=== PATIENT | female | born 1960 | race Caucasian/White ===

== ENCOUNTER 2018-01-03 16:41 | Emergency (ER) | payer OTHER ==
[~2018-01-03] VITALS: Ht 160 cm; Wt 109.0 kg
[~2018-01-03 16:41] MED LIST: ACET-75 PO; ASPI-1265 PO; FLUO20CA39 PO; GLUC-99 PO; MULT1TAB74 PO; OMEG300C3 PO; VITC500T PO
[2018-01-03 16:43] VITALS: BP 134/66
[2018-01-03] MEDS ORDERED: IBUP-1984 PO (19:50)
== END 2018-01-03 19:57 | disposition home or self-care (01) ==
LOC: ER 16:42
DX: M54.9 Dorsalgia, unspecified (principal); E11.9 Type 2 diabetes mellitus without complications; I25.2 Old myocardial infarction; G89.29 Other chronic pain; Z90.710 Acquired absence of both cervix and uterus; Z88.5 Allergy status to narcotic agent; Z79.82 Long term (current) use of aspirin; Z79.899 Other long term (current) drug therapy; V89.2XXA Person injured in unspecified motor-vehicle accident, traffic, initial encounter; Y93.89 Activity, other specified; Y92.89 Other specified places as the place of occurrence of the external cause; Y99.8 Other external cause status
CPT/HCPCS: 72040; 99284

== ENCOUNTER 2018-01-30 13:56 | Emergency (ER) | payer OTHER ==
[~2018-01-30] VITALS: Ht 160 cm; Wt 110.0 kg
[~2018-01-30 13:56] MED LIST changes: +IBUP-1984 PO
[2018-01-30 14:33] LABS: BASOPHILS # (AUTO) 0.1 X10'3 (0-0.2); BASOPHILS % (AUTO) 0.6 % (0-1); EOSINOPHILS # (AUTO) 0.3 X10'3 (0-0.9); EOSINOPHILS % (AUTO) 2.6 % (0-6); HEMATOCRIT 39.8 % (35.0-45.0); HEMOGLOBIN 13.8 g/dl (12.0-16.0); LYMPHOCYTES # (AUTO) 3.6 X10'3 (1.1-4.8); LYMPHOCYTES % (AUTO) 30.1 % (21-51); MEAN CORPUSCULAR HEMOGLOBIN 29.9 PG (27.0-31.0); MEAN CORPUSCULAR HGB CONC 34.7 % (33.0-36.5); MEAN CORPUSCULAR VOLUME 86.3 FL (78-98); MEAN PLATELET VOLUME 8.8 FL (7.4-10.4); MONOCYTES # (AUTO) 0.8 X10'3 (0-0.9); MONOCYTES % (AUTO) 6.8 % (2-12); NEUTROPHILS # (AUTO) 7.1 X10'3 (1.8-7.7); NEUTROPHILS % (AUTO) 59.9 % (42-75); PLATELET COUNT 316 X10'3 (140-440); RED BLOOD COUNT 4.61 X10'6 (4.20-5.60); RED CELL DISTRIBUTION WIDTH 13.1 % (11.5-14.5); WHITE BLOOD COUNT 11.9 X10'3 (4.5-11.0)
[2018-01-30 14:44] LABS: PARTIAL THROMBOPLASTIN TIME 25 SECONDS (22-32)
[2018-01-30 14:49] LABS: ALANINE AMINOTRANSFERASE 26 U/L (12-78); ALBUMIN 3.3 G/DL (3.4-5.0); ALBUMIN/GLOBULIN RATIO 0.8 (1.1-1.5); ALKALINE PHOSPHATASE 147 IU/L (46-116); ANION GAP 8 (8-16); ASPARTATE AMINO TRANSFERASE 21 U/L (10-37); BILIRUBIN,TOTAL 0.2 MG/DL (0.1-1.0); BLOOD UREA NITROGEN 29 MG/DL (7-18); BUN/CREATININE RATIO 32.6 (6.6-38.0); CALCIUM 8.7 MG/DL (8.5-10.1); CHLORIDE 104 MMOL/L (99-107); CREATININE 0.89 MG/DL (0.40-0.90); GLUCOSE 117 MG/DL (70-104); POTASSIUM 3.7 MMOL/L (3.5-5.1); SODIUM 138 MMOL/L (135-145); TOTAL CARBON DIOXIDE 25.9 MMOL/L (24-32); TOTAL PROTEIN 7.4 G/DL (6.4-8.2); eGFR 66 ML/MIN
[2018-01-30 18:05] VITALS: BP 149/83
== END 2018-01-30 18:08 | disposition home or self-care (01) ==
LOC: ER 13:57
DX: R07.89 Other chest pain (principal); G89.29 Other chronic pain; Z98.890 Other specified postprocedural states; Z90.710 Acquired absence of both cervix and uterus; Z88.5 Allergy status to narcotic agent; Z79.82 Long term (current) use of aspirin; Z79.899 Other long term (current) drug therapy
CPT/HCPCS: 36415; 71046; 80053; 83605; 84484; 85025; 85610; 85730; 87040; 93005; 99285

== ENCOUNTER 2019-07-31 16:01 | Emergency (ER) | payer SELFPAY ==
[~2019-07-31] VITALS: Ht 160 cm; Wt 118.2 kg
[~2019-07-31 16:01] MED LIST changes: -IBUP-1984 PO
[2019-07-31] MEDS ORDERED: ketorolac tromethamine 15mg/ml inj. IM ONE (17:30)
[2019-07-31] MEDS ORDERED: METH-360 PO (17:44)
[2019-07-31 17:57] VITALS: BP 131/91
== END 2019-07-31 17:59 | disposition home or self-care (01) ==
LOC: ER 16:02
DX: S76.812A Strain of other specified muscles, fascia and tendons at thigh level, left thigh, initial encounter (principal); G89.29 Other chronic pain; F41.9 Anxiety disorder, unspecified; F10.99 Alcohol use, unspecified with unspecified alcohol-induced disorder; Z90.710 Acquired absence of both cervix and uterus; Z98.890 Other specified postprocedural states; Z79.899 Other long term (current) drug therapy; Z79.82 Long term (current) use of aspirin; Z88.5 Allergy status to narcotic agent; W18.39XA Other fall on same level, initial encounter; Y93.89 Activity, other specified; Y92.89 Other specified places as the place of occurrence of the external cause; Y99.8 Other external cause status; Y90.9 Presence of alcohol in blood, level not specified
CPT/HCPCS: 96372; 99284; J1885

== ENCOUNTER 2020-07-30 18:46 | Emergency (ER) | payer SELFPAY ==
[~2020-07-30] VITALS: Ht 160 cm; Wt 119.5 kg
[~2020-07-30 18:46] MED LIST changes: +METH-360 PO; +MULT-620 PO; -MULT1TAB74 PO
[2020-07-30 19:18] LABS: BASOPHILS # (AUTO) 0.1 X10'3 (0-0.2); BASOPHILS % (AUTO) 0.8 % (0-1); EOSINOPHILS # (AUTO) 0.3 X10'3 (0-0.9); EOSINOPHILS % (AUTO) 2.3 % (0-6); HEMOGLOBIN 13.6 g/dl (12.0-16.0); LYMPHOCYTES # (AUTO) 4.1 X10'3 (1.1-4.8); LYMPHOCYTES % (AUTO) 29.8 % (21-51); MEAN CORPUSCULAR HEMOGLOBIN 28.9 PG (27.0-31.0); MEAN CORPUSCULAR HGB CONC 33.3 g/dL (33.0-36.5); MEAN CORPUSCULAR VOLUME 86.8 FL (78-98); MEAN PLATELET VOLUME 8.6 FL (7.4-10.4); MONOCYTES % (AUTO) 7.4 % (2-12); NEUTROPHILS # (AUTO) 8.2 X10'3 (1.8-7.7); NEUTROPHILS % (AUTO) 59.7 % (42-75); PLATELET COUNT 382 X10'3 (140-440); RED BLOOD COUNT 4.72 X10'6 (4.20-5.60); RED CELL DISTRIBUTION WIDTH 13.6 % (11.5-14.5); WHITE BLOOD COUNT 13.7 X10'3 (4.5-11.0)
[2020-07-30 19:33] LABS: ALANINE AMINOTRANSFERASE 32 U/L (12-78); ALBUMIN 3.2 G/DL (3.4-5.0); ALBUMIN/GLOBULIN RATIO 0.7 (1.1-1.5); ALKALINE PHOSPHATASE 170 IU/L (46-116); ANION GAP 10 (8-16); ASPARTATE AMINO TRANSFERASE 24 U/L (10-37); BILIRUBIN,TOTAL 0.2 MG/DL (0.1-1.0); BLOOD UREA NITROGEN 22 MG/DL (7-18); BUN/CREATININE RATIO 23.4 (6.6-38.0); CALCIUM 9.1 MG/DL (8.5-10.1); CHLORIDE 104 MMOL/L (99-107); CREATININE 0.94 MG/DL (0.40-0.90); GLUCOSE 142 MG/DL (70-104); POTASSIUM 3.8 MMOL/L (3.5-5.1); SODIUM 140 MMOL/L (135-145); TOTAL CARBON DIOXIDE 26.2 MMOL/L (24-32); TOTAL PROTEIN 7.6 G/DL (6.4-8.2); eGFR 61 ML/MIN
[2020-07-30 20:24] VITALS: BP 114/64
== END 2020-07-30 20:29 | disposition home or self-care (01) ==
LOC: ER 18:46
DX: R55 Syncope and collapse (principal); R07.89 Other chest pain; R06.02 Shortness of breath; R42 Dizziness and giddiness; M62.838 Other muscle spasm; G89.29 Other chronic pain; F41.9 Anxiety disorder, unspecified; Z90.710 Acquired absence of both cervix and uterus; Z98.890 Other specified postprocedural states; Z72.89 Other problems related to lifestyle; Z79.82 Long term (current) use of aspirin; Z88.5 Allergy status to narcotic agent; Z79.899 Other long term (current) drug therapy
CPT/HCPCS: 36415; 71045; 80053; 83880; 84484; 85025; 93005; 99285